=== PATIENT | male | born 1995 | race African-American/Black ===

== ENCOUNTER 2021-04-27 23:45 | Inpatient (IN) | payer MEDICAID, SELFPAY ==
[~2021-04-27] VITALS: Ht 182.9 cm; Wt 78.4 kg
[2021-04-28] MEDS ORDERED: LIDOCAINE W/EPINEPHRINE 1% 20ML VIAL SC ONE (00:40)
[2021-04-28] MEDS: HYDROMORPHONE HCL 0.5 MG/ 0.5 ML SYRINGE (J1170 PER 1) IV PRN ×3 (01:03→23:25)
[2021-04-28 01:13] LABS: BASO # 0.1 10^3/uL (0.0-0.2); BASO % 1.1 % (0.0-1.0); EOS # 0.1 10^3/uL (0.0-0.5); EOS % 1.3 % (0.0-3.0); HEMATOCRIT 43.5 % (42.0-52.0); HEMOGLOBIN 14.5 g/dl (13.5-17.5); LYMPH % 29.2 % (24.0-44.0); MEAN CORPUSCULAR HEMOGLOBIN 32.8 pg (27.0-33.0); MEAN CORPUSCULAR HGB CONC 33.3 g/dl (32.0-36.5); MEAN CORPUSCULAR VOLUME 98.4 fl (80.0-96.0); MONO # 0.6 10^3/uL (0.0-0.8); MONO % 5.8 % (2.0-8.0); NEUTROPHILS # 6.4 10^3/uL (1.5-8.5); NEUTROPHILS % 61.8 % (36.0-66.0); PLATELET COUNT, AUTOMATED 209 10^3/uL (150-450); RED BLOOD COUNT 4.42 10^6/uL (4.30-6.10); WHITE BLOOD COUNT 10.4 10^3/uL (4.0-10.0)
[2021-04-28] MEDS ORDERED: ceFAZolin SOD 1 GM in D5W MINI-BAG PLUS 50 ML IV ONE (01:30)
[2021-04-28] MEDS ORDERED: HOME MED LIST COMPLETE! XX SCH (01:50)
[2021-04-28] MEDS ORDERED: ceFAZolin SOD 2 GM in IV 1 EA IV ONE (02:00)
[2021-04-28 02:07] LABS: BLOOD UREA NITROGEN 10 MG/DL (7-18); CALCIUM LEVEL 8.2 MG/DL (8.5-10.1); CARBON DIOXIDE LEVEL 27 MEQ/L (21-32); CHLORIDE LEVEL 111 MEQ/L (98-107); CREATININE FOR GFR 0.71 MG/DL (0.70-1.30); GLOMERULAR FILTRATION RATE > 60.0 (>60); GLUCOSE, FASTING 85 MG/DL (70-100); SODIUM LEVEL 142 MEQ/L (136-145)
[2021-04-28] MEDS ORDERED: KETOROLAC 30 MG/ML 1ML VIAL IV ONE (02:10)
--- NOTE | 2021-04-28 02:38 | REPVR ---
PROCEDURE INFORMATION: Exam: XR Right Hand Exam date and time: 04/28/2021 1:52 AM Age: 25 years old Clinical indication: Other: Thenar alceration, foreign body; Additional info: Thenar laceration, foreign body TECHNIQUE: Imaging protocol: XR Right hand. Views: 1 or 2 views. COMPARISON: No relevant prior studies available. FINDINGS: Bones/joints: Normal. Soft tissues: Laceration and soft tissue swelling.No acute fracture or dislocation. No radiopaque foreign body. IMPRESSION: 1. No acute osseous abnormality. 2. No radiopaque foreign body. Electronically signed by: Jamari Triplett On 04/28/2021 02:38:07 AM
[2021-04-28 02:39] LABS: RSV AMPLIFICATION NEGATIVE (NEGATIVE)
--- NOTE | 2021-04-28 02:40 | REPVR ---
PROCEDURE INFORMATION: Exam: XR Right Forearm Exam date and time: 04/28/2021 1:52 AM Age: 25 years old Clinical indication: Other: Laceration, foreign body TECHNIQUE: Imaging protocol: XR Right forearm. Views: 2 views. COMPARISON: No relevant prior studies available. FINDINGS: Bones/joints: No acute fracture or dislocation. Soft tissues: Soft tissue swelling with laceration. Punctate hyperdensity adjacent to the 1st carpal metacarpal joint, question tiny punctate foreign body or calcification. IMPRESSION: Punctate hyperdensity adjacent to the 1st carpal metacarpal joint, question tiny punctate foreign body or calcification. Electronically signed by: Jamari Triplett On 04/28/2021 02:39:38 AM
[2021-04-28] MEDS ORDERED: NS 1,000 ML IV ONE (02:55)
[2021-04-28] MEDS ORDERED: HYDROMORPHONE HCL 0.5 MG/ 0.5 ML SYRINGE (J1170 PER 1) IV ONE (02:55)
[2021-04-28] MEDS ORDERED: GABAPENTIN 300 MG CAP PO ONE (02:55)
[2021-04-28] MEDS ORDERED: MORPHINE 2 MG/ML 1ML VIAL (J2270) IV PRN (03:25)
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
[2021-04-28] MEDS ORDERED: fentaNYL 100 MCG/2 ML INJECTION (J3010) IV ONE (04:00)
[2021-04-28] MEDS: NS 1,000 ML IV SCH ×3 (04:38→19:25)
[2021-04-28 06:00] VITALS: BP 102/57
[2021-04-28] MEDS: PROMETHAZINE INJ 25 MG/ML VIAL (J2550) IV PRN ×2 (08:20→12:37)
[2021-04-28] MEDS: MORPHINE 4 MG/ML 1ML VIAL/SYRINGE (J2270) IV PRN ×3 (09:03→21:04)
[2021-04-28] MEDS: ceFAZolin SOD 2 GM in IV 1 EA IV SCH ×3 (12:05→20:21)
[2021-04-28 14:00] VITALS: BP 120/80
[2021-04-28] MEDS ORDERED: HYDROmorphone HCL 2 MG/ML 1ML VIAL (J1170) As Ordered ONE (16:44)
[2021-04-28] MEDS ORDERED: MIDAZOLAM INJ 2MG/2ML VIAL (J2250 PER 1MG) As Ordered ONE (16:46)
[2021-04-28] MEDS ORDERED: propofoL 200 MG/20 ML VIAL As Ordered ONE ×2 (16:46→16:48)
[2021-04-28] MEDS ORDERED: fentaNYL 100 MCG/2 ML INJECTION (J3010) As Ordered ONE ×2 (16:46→18:18)
[2021-04-28] MEDS ORDERED: LIDOCAINE 2% 100MG/5ML SDV (FOR ANES.) As Ordered ONE (16:46)
[2021-04-28] MEDS ORDERED: ONDANSETRON 4MG/2ML VIAL As Ordered ONE (16:49)
[2021-04-28] MEDS ORDERED: dexameTHASONE 4 MG/ML 1ML VIAL (J1100 PER 1MG) As Ordered ONE (16:49)
[2021-04-28] MEDS ORDERED: HYDROmorphone HCL 2 MG/ML 1ML VIAL (J1170) IV SCH ×2 (16:55→17:45)
[2021-04-28] MEDS ORDERED: KETAMINE HCL 200 MG/20 ML VIAL As Ordered ONE (17:59)
[2021-04-28] MEDS ORDERED: BUPIVACAINE HCL 0.25% 30ML VIAL As Ordered ONE (18:01)
[2021-04-28] MEDS ORDERED: TRANEXAMIC ACID 100 MG/ML 10ML VIAL As Ordered ONE (18:04)
[2021-04-28] MEDS ORDERED: ACETAMINOPHEN 1000MG 100ML IV BTL (OFIRMEV) (J0131 PER 10MG) As Ordered ONE (18:05)
[2021-04-28] MEDS ORDERED: KETOROLAC 60MG 2ML VIAL As Ordered ONE (19:02)
[2021-04-28] MEDS ORDERED: fentaNYL 100 MCG/2 ML INJECTION (J3010) IV PRN (19:40)
[2021-04-28] MEDS ORDERED: oxyCODONE 5MG TAB PO PRN (19:40)
[2021-04-28] MEDS ORDERED: ONDANSETRON 4MG/2ML VIAL IV PRN (19:40)
[2021-04-28] MEDS ORDERED: LR 1,000 ML IV SCH (19:40)
[2021-04-28] MEDS ORDERED: HYDROMORPHONE HCL 0.5 MG/ 0.5 ML SYRINGE (J1170 PER 1) IV PRN (19:40)
[2021-04-28 21:03] VITALS: BP 127/60
[2021-04-28 21:42] VITALS: BP 117/71
[2021-04-28 22:43] VITALS: BP 122/58
[2021-04-28 23:45] VITALS: BP 126/62
[2021-04-29] VITALS (7 sets, daily range): BP systolic 120–161; BP diastolic 52–76
[2021-04-29] MEDS ORDERED: hydrOXYzine 25 MG TAB PO ONE (02:00)
[2021-04-29] MEDS: NICOTINE 14 MG/24 HR TRANSDERMAL TD PRN (02:14)
[2021-04-29] MEDS: MORPHINE 4 MG/ML 1ML VIAL/SYRINGE (J2270) IV PRN ×3 (02:15→13:32)
[2021-04-29] MEDS: NS 1,000 ML IV SCH (02:15)
[2021-04-29] MEDS: ceFAZolin SOD 2 GM in IV 1 EA IV SCH ×3 (02:15→17:18)
[2021-04-29] MEDS: HYDROMORPHONE HCL 0.5 MG/ 0.5 ML SYRINGE (J1170 PER 1) IV PRN ×2 (06:35→09:34)
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
[2021-04-29 08:02] LABS: HEMOGLOBIN 14.5 g/dl (13.5-17.5); MEAN CORPUSCULAR HEMOGLOBIN 33.2 pg (27.0-33.0); MEAN CORPUSCULAR HGB CONC 33.7 g/dl (32.0-36.5); MEAN CORPUSCULAR VOLUME 98.4 fl (80.0-96.0); PLATELET COUNT, AUTOMATED 189 10^3/uL (150-450); RED BLOOD COUNT 4.37 10^6/uL (4.30-6.10); WHITE BLOOD COUNT 13.9 10^3/uL (4.0-10.0)
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
[2021-04-29 08:41] LABS: BLOOD UREA NITROGEN 10 MG/DL (7-18); CALCIUM LEVEL 8.5 MG/DL (8.5-10.1); CARBON DIOXIDE LEVEL 20 MEQ/L (21-32); CHLORIDE LEVEL 109 MEQ/L (98-107); GLOMERULAR FILTRATION RATE > 60.0 (>60); GLUCOSE, FASTING 83 MG/DL (70-100); PHOSPHORUS LEVEL 3.2 MG/DL (2.5-4.9); POTASSIUM SERUM 4.3 MEQ/L (3.5-5.1); SODIUM LEVEL 137 MEQ/L (136-145)
[2021-04-29] MEDS: GABAPENTIN 100 MG CAP PO SCH ×2 (12:37→21:37)
[2021-04-29] MEDS ORDERED: NORCO, ANEXSIA 5/325MG TABLET (HYDROcodone/ACETAMINOPHEN) PO PRN (13:30)
[2021-04-29] MEDS ORDERED: ACETAMINOPHEN TAB 650MG DOSE (2X325MG) PO PRN (14:15)
--- NOTE | 2021-04-29 14:20 | IPNPDOC ---
Subjective Date Seen The patient was seen on 04/29/21. Subjective Chief Complaint/HPI Patient seen and examined at bedside this morning. He complains of intermittent shooting pain around the first digit. He denies headaches, chest pain, shortness of breath, abdominal pain, nausea, vomiting, auditory/visual/tactile hallucinations. Other systems 10 point review of system was negative except for what is noted in the HPI Objective Physical Examination Other physical findings General: Lying in bed, no acute distress Head/Neck/Throat: Trachea midline, mucous membranes moist Eyes: Sclera anicteric, PERRLA Thorax: Normal respiratory effort on room air, lungs clear to auscultation bilaterally, no wheezes/rales/rhonchi Cardiovascular: Normal rate, regular rhythm, normal S1, S2; no S3, S4, rubs/gallops/murmurs Abdomen: Bowel sounds present, soft/nontender/nondistended Genitourinary: No CVA tenderness, no Larsen in place Musculoskeletal: Right arm was wrapped with also being appreciated. He is able to move his fingertips. Sensation intact. Radial and ulnar pulses palpable. Skin: Warm, dry Neurologic: AAOx3, speech fluent and goal-directed, no focal deficits, grossly intact Assessment /Plan Plan/VTE VTE Prophylaxis Ordered?: Yes Plan #Right forearm laceration -Status post right forearm irrigation, debridement and exploration by orthopedics team. Discussed case with orthopedics team and no further interventions required at this time. He will need to work with occupational the rapy while hospitalized and once discharged. He will need follow-up with orthopedics as an outpatient. Begin to taper pain medications, will add gabapentin. We will continue with antibiotics for now. #Etoh use -No signs of withdrawal at this time. Continue to monitor. #DVT ppx -heparin subq VS, I&O, 24H, Fishbone Vital Signs/I&O Vital Signs Date Time Temp Pulse Resp B/P (MAP) Pulse Ox O2 Delivery O2 Flow Rate FiO2 04/29/21 13:42 18 04/29/21 10:00 98.7 78 129/74 (92) 97 Room Air I&O- Last 24 Hours up to 6 AM 04/29/21 06:00 Intake Total 1340 ml Output Total 370 ml Balance 970 ml Laboratory Data 24H LABS Laboratory Tests 2 04/29/21 07:38: Nucleated Red Blood Cells % (auto) 0.0, Anion Gap 8, Glomerular Filtration Rate > 60.0, Calcium Level 8.5, Phosphorus Level 3.2, Magnesium Level 2.0 CBC/BMP Laboratory Tests 04/29/21 07:38 MARILEE CAMPO M.D. Apr 29, 2021 14:16
[2021-04-29] MEDS: NORCO, ANEXSIA 5/325MG TABLET (HYDROcodone/ACETAMINOPHEN) PO PRN ×3 (14:57→23:08)
[2021-04-29] MEDS ORDERED: HYDROmorphone HCL 2 MG/ML 1ML VIAL (J1170) IV PRN (15:00)
[2021-04-29] MEDS: HEPARIN SOD (PORCINE) 5000UNITS/ML 1ML VIAL/SYRINGE SQ SCH (21:38)
[2021-04-30 02:30] VITALS: BP 136/77
[2021-04-30] MEDS: ceFAZolin SOD 2 GM in IV 1 EA IV SCH ×2 (02:58→10:00)
[2021-04-30] MEDS: NICOTINE 14 MG/24 HR TRANSDERMAL TD PRN (03:09)
[2021-04-30] MEDS: NORCO, ANEXSIA 5/325MG TABLET (HYDROcodone/ACETAMINOPHEN) PO PRN ×3 (03:10→13:13)
[2021-04-30 06:00] VITALS: BP 124/63
[2021-04-30] MEDS: HEPARIN SOD (PORCINE) 5000UNITS/ML 1ML VIAL/SYRINGE SQ SCH ×2 (06:37→13:12)
[2021-04-30 06:53] LABS: HEMOGLOBIN 14.7 g/dl (13.5-17.5); MEAN CORPUSCULAR HEMOGLOBIN 32.7 pg (27.0-33.0); MEAN CORPUSCULAR HGB CONC 33.4 g/dl (32.0-36.5); MEAN CORPUSCULAR VOLUME 97.8 fl (80.0-96.0); PLATELET COUNT, AUTOMATED 185 10^3/uL (150-450); WHITE BLOOD COUNT 8.6 10^3/uL (4.0-10.0)
[2021-04-30 07:10] LABS: BLOOD UREA NITROGEN 6 MG/DL (7-18); CALCIUM LEVEL 8.1 MG/DL (8.5-10.1); CARBON DIOXIDE LEVEL 27 MEQ/L (21-32); CHLORIDE LEVEL 109 MEQ/L (98-107); CREATININE FOR GFR 0.58 MG/DL (0.70-1.30); GLOMERULAR FILTRATION RATE > 60.0 (>60); GLUCOSE, FASTING 92 MG/DL (70-100); MAGNESIUM LEVEL 1.9 MG/DL (1.8-2.4); PHOSPHORUS LEVEL 3.2 MG/DL (2.5-4.9); POTASSIUM SERUM 3.7 MEQ/L (3.5-5.1); SODIUM LEVEL 140 MEQ/L (136-145)
[2021-04-30] MEDS: GABAPENTIN 100 MG CAP PO SCH (09:06)
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
[2021-04-30] MEDS ORDERED: HYDR-3715 PO ×2 (10:51→10:54)
[2021-04-30] MEDS ORDERED: CEPH500C PO (11:13)
--- NOTE | 2021-04-30 11:25 | DS.PDOC ---
Discharge Summary General Date of Admission Apr 27, 2021 at 23:46 Date of Discharge 04/30/21 Discharge Summary Mr. Munoz presented to [facility] on 04/28/2021 after he had sustained a trauma to his right arm. He was evaluated by the orthopedics team. He had sustained a right forearm volar traumatic laceration and right thenar eminences laceration. He underwent irrigation, debridement and exploration; as well as volar compartment fasciotomy. He was provided a prescription for occupational therapy. He is to undergo occupational therapy 3-5 times a week for return of motion and weightbearing as tolerated to the right upper extremity. A prescription has been provided for occupational therapy. He was instructed to follow-up with [facility] orthopedic clinic in 2 weeks. He was also given antibiotics upon discharge that he would need to complete. Pain medications or not able to be sent electronically, therefore a paper prescription was given. Vital Signs/I&Os Vital Signs Date Time Temp Pulse Resp B/P (MAP) Pulse Ox O2 Delivery O2 Flow Rate FiO2 04/30/21 09:06 18 04/30/21 06:00 98.7 54 124/63 (83) 97 Room Air I&O- Last 24 Hours up to 6 AM 04/30/21 06:00 Intake Total 1900 ml Output Total 0 ml Balance 1900 ml PHYSICAL EXAM General: Lying in bed, no acute distress Head/Neck/Throat: Trachea midline, mucous membranes moist Eyes: Sclera anicteric, PERRLA Thorax: Normal respiratory effort on room air, lungs clear to auscultation bilaterally, no wheezes/rales/rhonchi Cardiovascular: Normal rate, regular rhythm, normal S1, S2; no S3, S4, rubs/gallops/murmurs Abdomen: Bowel sounds present, soft/nontender/nondistended Genitourinary: No CVA tenderness, no Larsen in place Musculoskeletal: Right arm was wrapped with also being appreciated. He is able to move his fingertips. Sensation intact. Radial and ulnar pulses palpable. Skin: Warm, dry Neurologic: AAOx3, speech fluent and goal-directed, no focal deficits, grossly intact Laboratory Data Labs 24H Laboratory Tests 2 04/30/21 06:30: Nucleated Red Blood Cells % (auto) 0.0, Anion Gap 4L, Glomerular Filtration Rate > 60.0, Calcium Level 8.1L, Phosphorus Level 3.2, Magnesium Level 1.9 CBC/BMP Laboratory Tests 04/30/21 06:30 Discharge Medications Scheduled Cephalexin (Cephalexin) 500 Mg Capsule, 500 MG PO Q6H Scheduled PRN Hydrocodone/Acetaminophen (Hydrocodone-Acetamin 5-325 mg) 1 Each Tablet, 1 TAB PO Q8HP PRN for MODERATE/SEVERE PAIN (PS 5-10) Allergies Coded Allergies: No Known Allergies (Verified Allergy, Unknown, 04/28/21) MARILEE CAMPO M.D. Apr 30, 2021 11:17
== END 2021-04-30 16:15 | disposition home or self-care (01) | DRG 364 ==
LOC: M ED 23:45 → M ED INP 23:46 → M MS5PR 04-28 04:25
PROVIDERS: ADMIT Family Medicine; ATTEND Internal Medicine
PROC: 0LJX0ZZ Inspection of Upper Tendon, Open Approach (ICD-10-PCS; 2021-04-28)
PROC: 0HQDXZZ Repair Right Lower Arm Skin, External Approach (ICD-10-PCS; 2021-04-28)
PROC: 0LD50ZZ Extraction of Right Lower Arm and Wrist Tendon, Open Approach (ICD-10-PCS; principal; 2021-04-28 15:00)
DX: S51.821A Laceration with foreign body of right forearm, initial encounter (principal); F10.129 Alcohol abuse with intoxication, unspecified; W22.8XXA Striking against or struck by other objects, initial encounter; Y93.89 Activity, other specified; Y99.8 Other external cause status; Y92.511 Restaurant or cafe as the place of occurrence of the external cause; F17.200 Nicotine dependence, unspecified, uncomplicated; Z20.822 Contact with and (suspected) exposure to COVID-19; Y90.1 Blood alcohol level of 20-39 mg/100 ml